=== PATIENT | female | born 1995 | race Hispanic/Latino ===

== ENCOUNTER 2021-11-29 16:48 | Outpatient (CLI) | payer OTHER | END 2021-11-29 16:49 | disposition home or self-care (01) | LOC: CSHLAB 16:48 | PROVIDERS: ATTEND Internal Medicine Gastroenterology | DX: Z20.822 Contact with and (suspected) exposure to COVID-19 (principal) | CPT/HCPCS: 87811 ==

== ENCOUNTER 2021-12-03 12:22 | Day surgery (SDC) | payer OTHER ==
[2021-11-30 09:12] VITALS: BMI 25.6
[2021-12-03] MEDS ORDERED: Fentanyl 100 MCG/2 ML VIAL ONE (13:43)
[2021-12-03] MEDS ORDERED: Lidocaine 2% MPF 10 ML AMP (For Epidural Use) ONE (13:43)
[2021-12-03] MEDS ORDERED: PROPOFOL 40 ML ONE (13:43)
== END 2021-12-03 15:05 | disposition home or self-care (01) ==
LOC: CSHSDC 12:22
PROVIDERS: ATTEND Internal Medicine Gastroenterology
PROC: 0DB98ZZ Excision of Duodenum, Via Natural or Artificial Opening Endoscopic (ICD-10-PCS; principal; 2021-12-03)
DX: K29.80 Duodenitis without bleeding (principal); K29.50 Unspecified chronic gastritis without bleeding; B96.81 Helicobacter pylori [H. pylori] as the cause of diseases classified elsewhere; K21.9 Gastro-esophageal reflux disease without esophagitis; K44.9 Diaphragmatic hernia without obstruction or gangrene; Z20.822 Contact with and (suspected) exposure to COVID-19; Z79.899 Other long term (current) drug therapy; Z90.49 Acquired absence of other specified parts of digestive tract
CPT/HCPCS: 88305; 88342; J2704; J3010